=== PATIENT | female | born 1975 | race Caucasian/White ===

== ENCOUNTER 2018-07-20 13:36 | Emergency (ER) | payer OTHER ==
[2018-07-20 14:25] VITALS: O2SAT 100
[2018-07-20] MEDS ORDERED: Naproxen 500 MG TAB PO ONE ×2 (14:42→14:55)
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
--- NOTE | 2018-07-20 15:20 | RAD ---
Date of service: 07/20/2018 PROCEDURE: Cervical Spine Radiographs. HISTORY: Pain. COMPARISON: None available. FINDINGS: BONES: Alignment maintained. No fracture. Dens Intact. DISC SPACES: Normal. SOFT TISSUES: Normal. No prevertebral soft tissue swelling. OTHER FINDINGS: None. IMPRESSION: Normal cervical spine radiographs
--- NOTE | 2018-07-20 15:27 | RAD ---
Date of service: 07/20/2018 PROCEDURE: Radiographs of the Lumbar Spine. HISTORY: pain COMPARISON: No prior. FINDINGS: BONES: Normal alignment. No listhesis. No fracture. DISC SPACES: Unremarkable. OTHER FINDINGS: None. IMPRESSION: Unremarkable radiographs of the lumbar spine.
[2018-07-20 16:04] VITALS: BP 130/79; PULSE 77; RESP 18; TEMP 97.7
== END 2018-07-20 16:00 | disposition home or self-care (01) ==
LOC: H.ER 13:36
DX: M54.12 Radiculopathy, cervical region (principal); M54.16 Radiculopathy, lumbar region; V89.2XXA Person injured in unspecified motor-vehicle accident, traffic, initial encounter